=== PATIENT | male | born 1955 | race Caucasian/White ===

== ENCOUNTER 2017-09-17 14:33 | Inpatient (IN) | payer BC ==
[~2017-09-17] VITALS: Ht 177.8 cm; Wt 113.0 kg
[~2017-09-17 14:33] MED LIST: ALBU90OI INH; AMMO140TC TOP; AMOCLA875 PO; ASCO1ER PO; ASPI81CH PO; ATOR10 PO; BENZ100A PO; CELE100 PO; CIPR500 PO; DUETACT; ERGO50000 PO; ESCI10 PO; ESZO2 PO; Esgic Tablet1 EACH PO; GUAI600T33 PO; HYDACE5 PO; INVOKANA100 MG PO; LOSHYD100 PO; MULVITMINF PO; PSEU120ER PO; TELM40/12. PO; TOUJEO SOL300 UNIT/1 SQ; TRAZ50 PO; TRIBENZOR 20-51 EACH PO; VERA180ERB PO; ZOLP10 PO
[2017-09-17 15:16] LABS: BASOPHILS ABSOLUTE AUTO 0.02 K/mm3 (0.00-0.23); BASOPHILS PERCENT AUTO 0 % (0-2); EOSINOPHILS ABSOLUTE AUTO 0.01 K/mm3 (0.00-0.68); EOSINOPHILS PERCENT AUTO 0 % (0-6); Hematocrit 39.7 % (37.0-53.0); Hemoglobin 14.1 g/dL (13.5-17.5); IMMATURE GRAN ABSOLUTE AUTO 0.03 K/mm3 (0.00-0.10); IMMATURE GRAN PERCENT AUTO 0 % (0-1); LYMPHOCYTES ABSOLUTE AUTO 0.39 K/mm3 (0.84-5.20); LYMPHOCYTES PERCENT AUTO 4 % (21-46); MONOCYTES PERCENT AUTO 4 % (4-13); Mean Corpuscular HGB 32.3 pg (26.0-34.0); Mean Corpuscular HGB Conc 35.5 g/dL (31.5-36.5); Mean Corpuscular Volume 91 fL (80-100); Mean Platelet Volume 10.4 fL (9.1-12.4); NEUTROPHILS ABSOLUTE AUTO 8.89 K/mm3 (1.96-9.15); NEUTROPHILS PERCENT AUTO 91 % (41-73); Platelet Count 118 K/mm3 (150-400); RDW Coefficient Variation 12.7 % (11.7-14.2); RDW Standard Deviation 41.9 fL (35.1-46.3); Red Blood Cell Count 4.37 M/mm3 (4.30-5.90); White Blood Cell Count 9.74 K/mm3 (4.00-11.30)
[2017-09-17 15:38] LABS: Albumin, Blood 3.9 g/dL (3.4-5.0); Albumin/Globulin Ratio 1.1 (0.8-1.8); Bilirubin, Total 0.9 mg/dL (0.1-1.0); Bun/Creatinine Ratio 14.5 (12.0-20.0); Calcium, Blood 8.7 mg/dL (8.5-10.1); Creatinine, Blood 1.59 mg/dL (0.60-1.20); Globulin, Blood 3.7 g/dL (2.2-4.0); Potassium, Blood 3.7 mmol/L (3.5-5.5); Total Protein, Blood 7.6 g/dL (6.4-8.2)
[2017-09-17 15:57] LABS: Influenza A Negative (NEGATIVE); Influenza B Negative (NEGATIVE)
[2017-09-17 19:09] LABS: International Normalized Ratio 1.02; Prothrombin Time Results 10.6 Sec (9.7-11.5)
[2017-09-17] MEDS ORDERED: GUAI600T33 PO (19:43)
[2017-09-17] MEDS ORDERED: DIPH50 PO (19:44)
[2017-09-17 22:58] LABS: Source, Urine Voided
[2017-09-17 23:01] LABS: Bilirubin, Urine Neg (Neg); Blood, Urine Neg (Neg); Glucose Qualitative, Urine Neg (Neg); Ketones, Urine Neg (Neg); Leukocyte Esterase, Urine Neg (Neg); Nitrite, Urine Neg (Neg); Protein, Urine 3+ (Neg); Urobilinogen, Urine NORM (Normal)
[2017-09-17 23:05] LABS: Appearance, Urine Clear (Clear); Color, Urine Yellow (P-Yellow)
[2017-09-17 23:08] LABS: Bacteria Not Seen /hpf; Granular Casts 0-2 /lpf (0); Hyaline Casts 25-50 /lpf (0-2); Red Blood Cells, Urine Not Seen /hpf (0-2); Squamous Epithelial Cells Few /hpf (Few); White Blood Cells, Urine 0-2 /hpf (0-5)
[2017-09-18 03:59] LABS: Hematocrit 34.4 % (37.0-53.0); Mean Corpuscular HGB Conc 34.9 g/dL (31.5-36.5); Mean Platelet Volume 10.7 fL (9.1-12.4); Platelet Count 90 K/mm3 (150-400); RDW Coefficient Variation 13.3 % (11.7-14.2); RDW Standard Deviation 45.8 fL (35.1-46.3); Red Blood Cell Count 3.64 M/mm3 (4.30-5.90)
[2017-09-18 04:00] LABS: Mean Corpuscular Volume 95 fL (80-100)
[2017-09-18 04:17] LABS: Bun/Creatinine Ratio 16.1 (12.0-20.0); Calcium, Blood 7.4 mg/dL (8.5-10.1); Creatinine, Blood 1.93 mg/dL (0.60-1.20); Potassium, Blood 4.5 mmol/L (3.5-5.5)
[2017-09-18 04:55] LABS: BAND PERCENT MAN 20 % (0-8); BASOPHILS ABSOLUTE MAN 0.16 K/mm3 (0.00-0.23); BASOPHILS PERCENT MAN 1 % (0-2); EOSINOPHILS PERCENT MAN 0 % (0-6); LYMPHOCYTES ABSOLUTE MAN 0.84 K/mm3 (0.84-5.20); LYMPHOCYTES PERCENT MAN 5 % (21-46); MONOCYTES PERCENT MAN 3 % (4-13); NEUTROPHILS ABSOLUTE MAN 15.28 K/mm3 (1.96-9.15); SEG NEUTROPHILS PERCENT MAN 71 % (41-73); TOTAL CELLS COUNTED 100
[2017-09-19 04:02] LABS: Hematocrit 30.5 % (37.0-53.0); Hemoglobin 10.6 g/dL (13.5-17.5); Mean Corpuscular HGB Conc 34.8 g/dL (31.5-36.5); Platelet Count 91 K/mm3 (150-400); RDW Coefficient Variation 13.2 % (11.7-14.2); RDW Standard Deviation 44.3 fL (35.1-46.3); Red Blood Cell Count 3.31 M/mm3 (4.30-5.90); White Blood Cell Count 11.72 K/mm3 (4.00-11.30)
[2017-09-19 04:10] LABS: Mean Corpuscular Volume 92 fL (80-100)
[2017-09-19 04:23] LABS: Bun/Creatinine Ratio 17.3 (12.0-20.0); Calcium, Blood 7.7 mg/dL (8.5-10.1); Creatinine, Blood 1.5 mg/dL (0.60-1.20); Potassium, Blood 3.4 mmol/L (3.5-5.5)
[2017-09-19 04:33] LABS: BAND PERCENT MAN 30 % (0-8); BASOPHILS PERCENT MAN 0 % (0-2); EOSINOPHILS ABSOLUTE MAN 0.11 K/mm3 (0.00-0.68); EOSINOPHILS PERCENT MAN 1 % (0-6); LYMPHOCYTES ABSOLUTE MAN 1.17 K/mm3 (0.84-5.20); LYMPHOCYTES PERCENT MAN 10 % (21-46); MONOCYTES ABSOLUTE MAN 0.35 K/mm3 (0.16-1.47); MONOCYTES PERCENT MAN 3 % (4-13); NEUTROPHILS ABSOLUTE MAN 10.07 K/mm3 (1.96-9.15); SEG NEUTROPHILS PERCENT MAN 56 % (41-73); TOTAL CELLS COUNTED 100
[2017-09-19] MEDS ORDERED: CEFP500 PO (09:24)
[2017-09-19] MEDS ORDERED: ACET325 PO (09:24)
[2017-09-19] MEDS ORDERED: Lomotil Tablet1 EACH PO (09:25)
[2017-09-19] MEDS ORDERED: Advil200 M1 PO (09:26)
[2018-05-23] MEDS ORDERED: [UNRECOGNIZED DRUG - CODE] PO (10:31)
[2018-05-23] MEDS ORDERED: ATOR10 PO (18:33)
[2018-05-23] MEDS ORDERED: Apidra Sol100 UNIT/1 SC (18:37)
[2018-05-23] MEDS ORDERED: ASPI81CH PO (18:38)
[2018-05-23] MEDS ORDERED: TRIBENZOR 40-11 EACH PO (18:38)
[2018-05-23] MEDS ORDERED: MULTI VITAMIN1 EACH PO (18:39)
[2018-05-23] MEDS ORDERED: IBUP400 PO (18:39)
[2018-05-23] MEDS ORDERED: OMEPRAZOLE MAGN20 MG PO (18:40)
[2018-05-23] MEDS ORDERED: PSEU120ER PO (18:44)
[2018-05-23] MEDS ORDERED: LEVA.63IS INH (18:45)
[2018-05-23] MEDS ORDERED: TOUJEO SOL300 UNIT/1 SC (18:45)
[2018-05-23] MEDS ORDERED: MUCUS RELIEF C400 MG PO (18:46)
[2018-05-23] MEDS ORDERED: DIPH50 PO (18:46)
[2018-05-23] MEDS ORDERED: CELE200 PO (18:47)
[2018-05-23] MEDS ORDERED: TRAZ100 PO (18:47)
[2018-05-23] MEDS ORDERED: LOPE2C PO (18:49)
[2018-05-23] MEDS ORDERED: PROAIR RESPICL90 MCG INH (18:51)
[2018-05-23] MEDS ORDERED: SILD25T PO (18:54)
[2018-05-25] MEDS ORDERED: ALBU3IS INH (07:11)
[2018-05-25] MEDS ORDERED: POTA10T PO (07:11)
[2018-05-25] MEDS ORDERED: FURO20 PO (07:11)
[2018-05-26] MEDS ORDERED: CEFP500 PO (11:12)
[2018-05-26] MEDS ORDERED: NYST100000 PO (11:13)
== END 2017-09-19 11:00 | disposition home or self-care (01) | DRG 871 ==
LOC: ER 14:33 → PCU 16:16
PROVIDERS: Emergency Medicine; Family Medicine
DX: A41.9 Sepsis, unspecified organism (principal); J18.9 Pneumonia, unspecified organism; N17.9 Acute kidney failure, unspecified; D69.6 Thrombocytopenia, unspecified; E86.0 Dehydration; E11.9 Type 2 diabetes mellitus without complications; J44.9 Chronic obstructive pulmonary disease, unspecified; K21.9 Gastro-esophageal reflux disease without esophagitis; G47.33 Obstructive sleep apnea (adult) (pediatric); G89.29 Other chronic pain; M54.5 Low back pain; F32.9 Major depressive disorder, single episode, unspecified; Q80.9 Congenital ichthyosis, unspecified; Z79.82 Long term (current) use of aspirin; Z79.899 Other long term (current) drug therapy; Z79.4 Long term (current) use of insulin
CPT/HCPCS: 36415; 71046; 80048; 80053; 81001; 82947; 83605; 83880; 84484; 85025; 85610; 85730; 87040; 87070; 87147; 87205; 87493; 87804; 93005; 93010; 94640; 94760; 96361; 96374; 96375; 99285; J0456; J0696; J1200; J1815; J1885; J2765; J7030; J7050

== ENCOUNTER → 2017-12-19 | Outpatient (CLI) | payer BC ==
[~2017-12-19] MED LIST changes: +ACET325 PO; +Advil200 M1 PO; +CEFP500 PO; +DIPH50 PO; +Lomotil Tablet1 EACH PO
[2017-12-19 12:39] LABS: BASOPHILS ABSOLUTE AUTO 0.04 K/mm3 (0.00-0.23); BASOPHILS PERCENT AUTO 1 % (0-2); EOSINOPHILS ABSOLUTE AUTO 0.08 K/mm3 (0.00-0.68); EOSINOPHILS PERCENT AUTO 1 % (0-6); Hematocrit 39.8 % (37.0-53.0); Hemoglobin 14.6 g/dL (13.5-17.5); IMMATURE GRAN ABSOLUTE AUTO 0.01 K/mm3 (0.00-0.10); IMMATURE GRAN PERCENT AUTO 0 % (0-1); LYMPHOCYTES PERCENT AUTO 20 % (21-46); MONOCYTES ABSOLUTE AUTO 0.51 K/mm3 (0.16-1.47); MONOCYTES PERCENT AUTO 7 % (4-13); Mean Corpuscular HGB 32.2 pg (26.0-34.0); Mean Corpuscular HGB Conc 36.7 g/dL (31.5-36.5); Mean Corpuscular Volume 88 fL (80-100); Mean Platelet Volume 10.6 fL (9.1-12.4); NEUTROPHILS ABSOLUTE AUTO 4.91 K/mm3 (1.96-9.15); NEUTROPHILS PERCENT AUTO 71 % (41-73); Platelet Count 167 K/mm3 (150-400); RDW Standard Deviation 41.1 fL (35.1-46.3); Red Blood Cell Count 4.54 M/mm3 (4.30-5.90); White Blood Cell Count 6.95 K/mm3 (4.00-11.30)
[2017-12-19 12:47] LABS: Albumin, Blood 4.3 g/dL (3.4-5.0); Bilirubin, Total 0.7 mg/dL (0.1-1.0); Bun/Creatinine Ratio 20.8 (12.0-20.0); Calcium, Blood 9.3 mg/dL (8.5-10.1); Creatinine, Blood 1.54 mg/dL (0.60-1.20); Globulin, Blood 4.5 g/dL (2.2-4.0); Potassium, Blood 4.1 mmol/L (3.5-5.5); Total Protein, Blood 8.8 g/dL (6.4-8.2)
== END | disposition home or self-care (01) ==
LOC: LAB SHORT 12:33 → LAB EV 12:33
PROVIDERS: Physician Assistant
DX: R10.32 Left lower quadrant pain (principal)
CPT/HCPCS: 80053; 83690; 85025

== ENCOUNTER → 2018-12-03 | Outpatient (CLI) | payer BC ==
[~2018-12-03] MED LIST changes: +ALBU3IS INH; +Apidra Sol100 UNIT/1 SC; +CELE200 PO; +FURO20 PO; +IBUP400 PO; +LEVA.63IS INH; +LOPE2C PO; +MUCUS RELIEF C400 MG PO; +MULTI VITAMIN1 EACH PO; +NYST100000 PO; +OMEPRAZOLE MAGN20 MG PO; +POTA10T PO; +PROAIR RESPICL90 MCG INH; +SILD25T PO; +TOUJEO SOL300 UNIT/1 SC; +TRAZ100 PO; +TRIBENZOR 40-11 EACH PO; +[UNRECOGNIZED DRUG - CODE] PO
== END | disposition home or self-care (01) ==
LOC: LAB SHORT 12:03 → LAB 12:03
DX: J15.9 Unspecified bacterial pneumonia (principal)
CPT/HCPCS: 87070; 87205

== ENCOUNTER 2019-02-13 12:00 | Day surgery (SDC) | payer BC | END 2019-02-13 23:19 | disposition home or self-care (01) | LOC: WOUND 12:00 | DX: E11.621 Type 2 diabetes mellitus with foot ulcer (principal); L97.512 Non-pressure chronic ulcer of other part of right foot with fat layer exposed; E11.40 Type 2 diabetes mellitus with diabetic neuropathy, unspecified; I10 Essential (primary) hypertension; G47.33 Obstructive sleep apnea (adult) (pediatric) | CPT/HCPCS: 87071; 87075; 87077; 87102; 87147; 87186; 87205; G0463 ==

== ENCOUNTER 2019-02-16 14:59 | Day surgery (SDC) | payer BC | END 2019-02-16 22:49 | disposition home or self-care (01) | LOC: WOUND 14:59 | DX: E11.621 Type 2 diabetes mellitus with foot ulcer (principal); L97.515 Non-pressure chronic ulcer of other part of right foot with muscle involvement without evidence of necrosis; S61.209A Unspecified open wound of unspecified finger without damage to nail, initial encounter; I10 Essential (primary) hypertension; G47.33 Obstructive sleep apnea (adult) (pediatric) | CPT/HCPCS: G0463 ==

== ENCOUNTER → 2019-02-16 | Outpatient (CLI) | payer BC | END | disposition home or self-care (01) | LOC: LAB EV 17:26 → LAB SHORT 17:26 | DX: S61.001A Unspecified open wound of right thumb without damage to nail, initial encounter (principal) | CPT/HCPCS: 87070; 87075; 87077; 87147; 87186; 87205 ==

== ENCOUNTER → 2019-02-18 | Outpatient (CLI) | payer BC | END | disposition home or self-care (01) | LOC: LAB SHORT 11:16 → PLD 11:16 | DX: C44.622 Squamous cell carcinoma of skin of right upper limb, including shoulder (principal); D04.62 Carcinoma in situ of skin of left upper limb, including shoulder; C44.319 Basal cell carcinoma of skin of other parts of face | CPT/HCPCS: 88305 ==

== ENCOUNTER 2019-02-25 00:37 | Day surgery (SDC) | payer BC | END 2019-02-25 22:46 | disposition home or self-care (01) | LOC: WOUND 00:37 | DX: E11.621 Type 2 diabetes mellitus with foot ulcer (principal); L97.515 Non-pressure chronic ulcer of other part of right foot with muscle involvement without evidence of necrosis; S61.208A Unspecified open wound of other finger without damage to nail, initial encounter; I10 Essential (primary) hypertension; G47.33 Obstructive sleep apnea (adult) (pediatric) | CPT/HCPCS: G0463 ==

== ENCOUNTER 2019-03-02 00:35 | Day surgery (SDC) | payer BC | END 2019-03-02 23:01 | disposition home or self-care (01) | LOC: WOUND 00:35 | DX: E11.621 Type 2 diabetes mellitus with foot ulcer (principal); L97.515 Non-pressure chronic ulcer of other part of right foot with muscle involvement without evidence of necrosis; I10 Essential (primary) hypertension; E11.40 Type 2 diabetes mellitus with diabetic neuropathy, unspecified | CPT/HCPCS: G0463 ==

== ENCOUNTER → 2019-04-06 | Outpatient (CLI) | payer BC | END | disposition home or self-care (01) | LOC: PLD 14:43 → LAB SHORT 14:43 | DX: E11.621 Type 2 diabetes mellitus with foot ulcer (principal); E11.42 Type 2 diabetes mellitus with diabetic polyneuropathy; E11.49 Type 2 diabetes mellitus with other diabetic neurological complication; M79.673 Pain in unspecified foot; L97.509 Non-pressure chronic ulcer of other part of unspecified foot with unspecified severity; M19.079 Primary osteoarthritis, unspecified ankle and foot; M20.20 Hallux rigidus, unspecified foot | CPT/HCPCS: 88305; 88311 ==

== ENCOUNTER → 2019-05-12 | Outpatient (CLI) | payer BC | END | disposition home or self-care (01) | LOC: PLD 10:24 → LAB SHORT 10:24 | DX: C44.622 Squamous cell carcinoma of skin of right upper limb, including shoulder (principal) | CPT/HCPCS: 88305 ==

== ENCOUNTER → 2020-04-29 | Outpatient (CLI) | payer BC | END | disposition home or self-care (01) | LOC: LAB SHORT 08:00 → LAB 08:00 | DX: R05 Cough (principal) | CPT/HCPCS: 87070; 87205 ==

== ENCOUNTER → 2020-05-05 | Outpatient (CLI) | payer BC ==
[2020-05-06 10:15] LABS: Stool Occult Bld Immuno 1 Negative (NEGATIVE)
== END | disposition home or self-care (01) ==
LOC: LAB 14:14 → LAB SHORT 14:14
PROVIDERS: Family Medicine
DX: Z12.11 Encounter for screening for malignant neoplasm of colon (principal)
CPT/HCPCS: G0328

== ENCOUNTER → 2020-10-06 | Outpatient (CLI) | payer BC | END | disposition home or self-care (01) | LOC: LAB SHORT 11:43 | DX: D04.61 Carcinoma in situ of skin of right upper limb, including shoulder (principal) | CPT/HCPCS: 88305 ==

== ENCOUNTER 2021-04-27 10:37 | Day surgery (SDC) | payer BC ==
[~2021-04-27] VITALS: Ht 177.8 cm; Wt 103.4 kg
[2021-04-27] MEDS ORDERED: OZEMPIC0.25 MG/0. (11:10)
[2021-04-27] MEDS ORDERED: HUMALOG100 UNIT/1 (11:11)
[2021-04-27] MEDS ORDERED: Flomax0.4 MG (11:14)
--- NOTE | 2021-04-27 11:40 | NUR ---
04/27/21 1140 Ashley Galarza PT RESTING COMFORTABLE IN BED. HE IS AWARE DR. FINNEGAN WILL BE IN ABOUT 1230, CURRENT TIME IS 1138. PT HAS CALL LIGHT WITHIN REACH. BED IN LOWEST POSTION. SIDERAILS UP. PT'S CONCERN AT THIS TIME IS GETTIN HIS POST-OP PAIN MEDICATION. AT THIS TIME [facility] [address] IS CURRENTLY CLOSED. FERMIN ROTH IS GOING TO SEE ABOUT GETTIN HIS RX FILLED AT THE [facility]. NO OTHER QUESTIONS OR CONCERNS AT THIS TIME. WILL CONTINUE TO MONITOR. REPORT GIVEN TO FERMIN ROTH.
--- NOTE | 2021-04-27 13:37 | NUR ---
04/27/21 1337 Ashley Lopez A PATIENT'S SKIN WITH GENERALIZED FLAKING, DRYNESS AND SCAB LIKE AREAS. PATIENT STATES IT FROM HIS CHRONIC SKIN CONDITION.
== END 2021-04-27 14:42 | disposition home or self-care (01) ==
LOC: ORSCSDS 10:37
PROVIDERS: Podiatrist
PROC: 0QBP0ZZ Excision of Left Metatarsal, Open Approach (ICD-10-PCS; principal; 2021-04-27 12:30)
DX: M20.5X2 Other deformities of toe(s) (acquired), left foot (principal); I10 Essential (primary) hypertension; J44.9 Chronic obstructive pulmonary disease, unspecified; G47.33 Obstructive sleep apnea (adult) (pediatric); E11.40 Type 2 diabetes mellitus with diabetic neuropathy, unspecified; Z79.4 Long term (current) use of insulin; Z79.899 Other long term (current) drug therapy; Z79.82 Long term (current) use of aspirin
CPT/HCPCS: 82947; J0690; J1100; J1885; J2370; J2405; J2704; J3010; J7120

== ENCOUNTER → 2021-07-13 | Outpatient (CLI) | payer BC ==
[~2021-07-13] MED LIST changes: +Flomax0.4 MG; +HUMALOG100 UNIT/1; +OZEMPIC0.25 MG/0.
== END | disposition home or self-care (01) ==
LOC: LAB SHORT 12:23
DX: D04.62 Carcinoma in situ of skin of left upper limb, including shoulder (principal); D04.61 Carcinoma in situ of skin of right upper limb, including shoulder; C44.329 Squamous cell carcinoma of skin of other parts of face
CPT/HCPCS: 88305

== ENCOUNTER → 2021-09-26 | Outpatient (CLI) | payer BC | END | disposition home or self-care (01) | LOC: LAB SHORT 08:26 → LAB 08:26 | DX: C44.622 Squamous cell carcinoma of skin of right upper limb, including shoulder (principal) | CPT/HCPCS: 88305 ==

== ENCOUNTER 2021-11-10 14:45 | Day surgery (SDC) | payer BC ==
[~2021-11-10] VITALS: Wt 102.3 kg
[~2021-11-10 14:45] MED LIST changes: -TOUJEO SOL300 UNIT/1 SC; +TOUJEO SOL300 UNIT/2 SC
[2021-11-10] MEDS ORDERED: BREO ELLIPTA 21 EAC1 INH (17:42)
[2021-11-10] MEDS ORDERED: GABA400 PO (17:43)
[2021-11-10] MEDS ORDERED: [UNRECOGNIZED DRUG - OTHER] PO (17:43)
== END 2021-11-10 18:13 | disposition home or self-care (01) ==
LOC: ATC 14:45
DX: L03.115 Cellulitis of right lower limb (principal); L03.031 Cellulitis of right toe
CPT/HCPCS: 82565; J3370; J7060

== ENCOUNTER 2021-11-11 14:29 | Day surgery (SDC) | payer BC ==
[~2021-11-11 14:29] MED LIST changes: +BREO ELLIPTA 21 EAC1 INH; +GABA400 PO; +[UNRECOGNIZED DRUG - OTHER] PO
[2021-11-11 15:13] LABS: Creatinine, Blood 1.92 mg/dL (0.60-1.20); Vancomycin, Trough 15.6 ug/mL (5.0-10.0)
== END 2021-11-11 16:48 | disposition home or self-care (01) ==
LOC: ATC 14:29
PROVIDERS: Podiatrist
DX: L03.031 Cellulitis of right toe (principal); J44.9 Chronic obstructive pulmonary disease, unspecified; E11.9 Type 2 diabetes mellitus without complications; I10 Essential (primary) hypertension; E11.42 Type 2 diabetes mellitus with diabetic polyneuropathy; Z79.4 Long term (current) use of insulin; L97.512 Non-pressure chronic ulcer of other part of right foot with fat layer exposed
CPT/HCPCS: 80202; 82565; J3370; J7060

== ENCOUNTER 2021-11-12 00:55 | Day surgery (SDC) | payer BC | END 2021-11-12 16:25 | disposition home or self-care (01) | LOC: ATC 00:55 | DX: L03.115 Cellulitis of right lower limb (principal); E11.9 Type 2 diabetes mellitus without complications | CPT/HCPCS: 96365; J3370; J7060 ==

== ENCOUNTER → 2022-01-31 | Outpatient (CLI) | payer BC | END | disposition home or self-care (01) | LOC: PLD 12:31 → LAB SHORT 12:31 | DX: D04.62 Carcinoma in situ of skin of left upper limb, including shoulder (principal); L57.0 Actinic keratosis | CPT/HCPCS: 88305 ==

== ENCOUNTER → 2022-10-24 | Outpatient (CLI) | payer MEDICARE | END | disposition home or self-care (01) | LOC: LAB SHORT 11:13 → LAB 11:13 → PLD 11:13 | DX: C44.329 Squamous cell carcinoma of skin of other parts of face (principal); C44.319 Basal cell carcinoma of skin of other parts of face; C44.622 Squamous cell carcinoma of skin of right upper limb, including shoulder; D04.5 Carcinoma in situ of skin of trunk | CPT/HCPCS: 88305 ==

== ENCOUNTER → 2022-11-12 | Outpatient (CLI) | payer MEDICARE | END | disposition home or self-care (01) | LOC: PLD 10:21 → LAB SHORT 10:21 | DX: L57.0 Actinic keratosis (principal) | CPT/HCPCS: 88305 ==

== ENCOUNTER → 2022-11-20 | Outpatient (CLI) | payer MEDICARE | END | disposition home or self-care (01) | LOC: LAB 09:30 → LAB SHORT 09:30 | DX: L03.113 Cellulitis of right upper limb (principal) | CPT/HCPCS: 87070; 87077; 87186; 87205 ==

== ENCOUNTER → 2023-02-07 | Outpatient (CLI) | payer MEDICARE | LOC: LAB 11:56 → LAB SHORT 11:56 | DX: H60.92 Unspecified otitis externa, left ear (principal) | CPT/HCPCS: 87070; 87106; 87205 ==

== ENCOUNTER 2023-03-30 20:04 | Emergency (ER) | payer MEDICARE ==
[~2023-03-30] VITALS: Ht 175.3 cm; Wt 106.6 kg
[~2023-03-30 20:04] MED LIST changes: +Percocet 5-3251 EACH PO
[2023-03-30 20:16] VITALS: BP 164/99
== END 2023-03-30 20:44 | disposition home or self-care (01) ==
LOC: ER 20:04
DX: G89.18 Other acute postprocedural pain (principal); H92.02 Otalgia, left ear; L21.9 Seborrheic dermatitis, unspecified; Z91.018 Allergy to other foods; E11.9 Type 2 diabetes mellitus without complications; Z79.899 Other long term (current) drug therapy; Z79.4 Long term (current) use of insulin; Z79.82 Long term (current) use of aspirin; Z87.891 Personal history of nicotine dependence
CPT/HCPCS: 99282; A9270

== ENCOUNTER 2023-04-01 23:02 | Emergency (ER) | payer MEDICARE ==
[~2023-04-01] VITALS: Ht 182.9 cm; Wt 95.2 kg
[2023-04-01 23:33] VITALS: BP 129/103
[2023-04-01] MEDS ORDERED: Norco 5-325 Ta1 EACH PO (23:41)
== END 2023-04-02 00:05 | disposition home or self-care (01) ==
LOC: ER 23:02
DX: G62.9 Polyneuropathy, unspecified (principal); C44.309 Unspecified malignant neoplasm of skin of other parts of face; E11.9 Type 2 diabetes mellitus without complications; Z98.890 Other specified postprocedural states; Z91.018 Allergy to other foods; Z79.899 Other long term (current) drug therapy; Z79.4 Long term (current) use of insulin; Z79.82 Long term (current) use of aspirin
CPT/HCPCS: 96372; 99282-25; A9270; J1885

== ENCOUNTER → 2023-04-02 | Outpatient (CLI) | payer MEDICARE ==
[~2023-04-02] MED LIST changes: +Norco 5-325 Ta1 EACH PO
== END | disposition home or self-care (01) ==
LOC: PLD 12:01 → LAB SHORT 12:01
DX: D04.62 Carcinoma in situ of skin of left upper limb, including shoulder (principal); D04.61 Carcinoma in situ of skin of right upper limb, including shoulder; D04.39 Carcinoma in situ of skin of other parts of face
CPT/HCPCS: 88305

== ENCOUNTER 2023-05-14 09:12 | Emergency (ER) | payer MEDICARE ==
[~2023-05-14] VITALS: Ht 175.3 cm; Wt 97.5 kg
[~2023-05-14 09:12] MED LIST changes: -CEPHALEXIN500 MG PO
[2023-05-14 10:34] LABS: BASOPHILS ABSOLUTE AUTO 0.03 K/mm3 (0.00-0.23); BASOPHILS PERCENT AUTO 0 % (0-2); EOSINOPHILS ABSOLUTE AUTO 0.03 K/mm3 (0.00-0.68); EOSINOPHILS PERCENT AUTO 0 % (0-6); Hematocrit 36.5 % (37.0-53.0); Hemoglobin 12.5 g/dL (13.5-17.5); IMMATURE GRAN ABSOLUTE AUTO 0.03 K/mm3 (0.00-0.10); IMMATURE GRAN PERCENT AUTO 0 % (0-1); LYMPHOCYTES ABSOLUTE AUTO 0.79 K/mm3 (0.84-5.20); LYMPHOCYTES PERCENT AUTO 9 % (21-46); MONOCYTES ABSOLUTE AUTO 0.43 K/mm3 (0.16-1.47); MONOCYTES PERCENT AUTO 5 % (4-13); Mean Corpuscular HGB 31.3 pg (26.0-34.0); Mean Corpuscular HGB Conc 34.2 g/dL (31.5-36.5); Mean Corpuscular Volume 92 fL (80-100); Mean Platelet Volume 11.6 fL (9.1-12.4); NEUTROPHILS ABSOLUTE AUTO 7.41 K/mm3 (1.96-9.15); NEUTROPHILS PERCENT AUTO 85 % (41-73); Platelet Count 131 K/mm3 (150-400); RDW Coefficient Variation 13.3 % (11.7-14.2); RDW Standard Deviation 44.9 fL (35.1-46.3); Red Blood Cell Count 3.99 M/mm3 (4.30-5.90); White Blood Cell Count 8.72 K/mm3 (4.00-11.30)
[2023-05-14 11:44] LABS: Albumin/Globulin Ratio 1.1 (0.8-1.8); Bilirubin, Total 0.4 mg/dL (0.1-1.0); Bun/Creatinine Ratio 17.1 (12.0-20.0); Calcium, Blood 9.2 mg/dL (8.5-10.1); Creatinine, Blood 2.1 mg/dL (0.60-1.20); Globulin, Blood 3.8 g/dL (2.2-4.0); Potassium, Blood 4.5 mmol/L (3.5-5.5); Total Protein, Blood 7.8 g/dL (6.4-8.2)
[2023-05-14] MEDS ORDERED: CEPHALEXIN500 MG PO (11:50)
[2023-05-14 11:55] VITALS: BP 150/82
== END 2023-05-14 12:12 | disposition home or self-care (01) ==
LOC: ER 09:12
PROVIDERS: Student in an Organized Health Care Education/Training Program
DX: L03.116 Cellulitis of left lower limb (principal); E11.9 Type 2 diabetes mellitus without complications; Z79.4 Long term (current) use of insulin; Z79.82 Long term (current) use of aspirin; Z79.899 Other long term (current) drug therapy; Z91.018 Allergy to other foods; X58.XXXA Exposure to other specified factors, initial encounter
CPT/HCPCS: 80053; 85025; 99283

== ENCOUNTER → 2023-05-14 | Outpatient (CLI) | payer MEDICARE ==
[~2023-05-14] MED LIST changes: +CEPHALEXIN500 MG PO
== END | disposition home or self-care (01) ==
LOC: LAB 08:30 → LAB SHORT 08:30
DX: L97.909 Non-pressure chronic ulcer of unspecified part of unspecified lower leg with unspecified severity (principal)
CPT/HCPCS: 87070; 87077; 87186; 87205